=== PATIENT | female | born 1945 | race Caucasian/White ===

== ENCOUNTER → 2016-05-27 | Outpatient (REF) ==
[2016-05-27 14:29] LABS: BILIRUBIN,URINE Negative (Negative); COLOR,URINE Yellow; GLUCOSE, URINE (UA) Negative (Negative); LEUKOCYTE ESTERASE ,URINE 1+ (Negative); PH,URINE 5.5 (5.0 - 8.0); UROBILINOGEN,URINE 0.2 mg/dL (0.2-1.0)
[2016-05-27 14:36] LABS: CLARITY,URINE Slightly Cloudy
[2016-05-27 14:42] LABS: URINE CENTRIFUGED VOLUME 12 mL
== END ==
LOC: CLAB.BLUES 12:10
PROVIDERS: ATTEND Family Medicine
DX: N39.3 Stress incontinence (female) (male) (principal); R82.99 Other abnormal findings in urine; R32 Unspecified urinary incontinence
CPT/HCPCS: 81003; 81015; 87088

== ENCOUNTER → 2016-07-09 | Outpatient (REF) ==
[2016-07-09 15:57] LABS: BILIRUBIN,URINE Negative (Negative); COLOR,URINE Yellow; GLUCOSE, URINE (UA) Negative (Negative); LEUKOCYTE ESTERASE, URINE Negative (Negative); UROBILINOGEN,URINE 0.2 mg/dL (0.2-1.0)
[2016-07-09 16:30] LABS: CLARITY,URINE Slightly Cloudy
== END ==
LOC: CLAB.BLUES 15:15
PROVIDERS: ATTEND Family Medicine
DX: F41.0 Panic disorder [episodic paroxysmal anxiety] (principal)
CPT/HCPCS: 81003